=== PATIENT | female | born 1980 | race Hispanic/Latino ===

== ENCOUNTER 2016-11-10 13:09 | Emergency (ER) | payer SELFPAY ==
[2016-11-10 14:18] LABS: Basophils % (Auto) 2.7 % (0.0-1.8); Eosinophils % (Auto) 1.6 % (0.0-4.3); Hematocrit 40.4 % (30.3-42.9); Hemoglobin 13.4 gm/dl (10.1-14.3); Mean Corpuscular HGB Conc 33 % (30-34); Mean Corpuscular Hemoglobin 32 pg (28-32); Mean Corpuscular Volume 97 fl (79-97); Platelet Count 191 K/mm3 (140-440); Red Blood Count 4.17 M/mm3 (3.65-5.03); Red Cell Distribution Width 14.2 % (13.2-15.2); White Blood Count 12.4 K/mm3 (4.5-11.0)
[2016-11-10 14:42] LABS: Anion Gap 18 mmol/L; Blood Urea Nitrogen 10 mg/dL (7-17); Calcium 8.8 mg/dL (8.4-10.2); Carbon Dioxide 24 mmol/L (22-30); Chloride 99.8 mmol/L (98-107); Potassium 3.6 mmol/L (3.6-5.0); Sodium 138 mmol/L (137-145)
[2016-11-10 15:04] LABS: Glucose 126 mg/dL (65-100)
[2016-11-10 17:07] LABS: Bacteria,Urine 1+ /HPF (Negative); Bilirubin,Urine NEG (Negative); Blood,Urine SM (Negative); Ketones,Urine NEG (Negative); Leukocyte Esterase,Urine LG (Negative); Mucus,Urine 3+ /HPF; Nitrite,Urine POS (Negative); Urobilinogen,Urine < 2.0 mg/dL (<2.0); WBC,Urine > 182.0 /HPF (0.0-6.0)
[2016-11-10] MEDS ORDERED: NACL 0.9% 1000 ML 1,000 ML IV ONE (17:19)
[2016-11-10] MEDS ORDERED: ROCEPHIN/NS 1 GM/50 ML 1 GM/50 ML BAG IV ONE (17:19)
[2016-11-10] MEDS ORDERED: MOTRIN PO ONE (17:20)
--- NOTE | 2016-11-10 18:21 | Cat Scan Report ---
FINAL REPORT PROCEDURE: CT ABDOMEN PELVIS WO CON TECHNIQUE: Computerized axial tomography of the abdomen and pelvis was performed without intravenous contrast. This study is performed without intravascular contrast material and its sensitivity for abdominal and pelvic pathology, including neoplasms, inflammation, abscess, free fluid, thrombosis, arterial dissection and infarction, is reduced compared with a contrast enhanced study. HISTORY: L sided flank pain, uti COMPARISON: No prior studies are available for comparison. FINDINGS: Mild hypoventilatory changes are seen in the lung bases. Spleen is top normal limits in size. The liver, gallbladder, and pancreas display no abnormalities. Common bile duct is dilated to 7.6 millimeters in diameter. Shotty retroperitoneal lymph nodes are seen Adrenal glands and abdominal aorta are normal in size. Mild perinephric streaky densities are seen in the right. No nephrolithiasis or hydronephrosis is seen. There may be a 1 millimeter poorly calcified stone in the right upper ureter on image 86 of the axial series. Changes of right-sided pyelonephritis are not excluded.. Mild hyperdensity within the bilateral renal medulla could represent very minimal medullary nephrocalcinosis. Bladder is partially distended without abnormality. Follicles are suspected in the ovaries. Normal appendix is seen. No free pelvic fluid is seen. No small-bowel obstruction is seen but there may be mild internal hernia formation of the descending colon seen on images 75-90. There is mild gaseous dilation of the colon in the region of the suspected hernia and partial colonic obstruction is not excluded. IMPRESSION: There may be 1 millimeter stone in the right upper ureter but no right-sided hydronephrosis is seen. Right perinephric streaky densities are seen. Right-sided pyelonephritis is not excluded. There may be mild medullary nephrocalcinosis bilaterally. Likely internal hernia formation is seen associated with the distal descending colon, with possible mild partial obstruction at this level, given mild gaseous dilation. Common bile duct measures 7.6 millimeters in diameter. Correlation with bilirubin levels is recommended. Right upper quadrant ultrasound may be useful if further evaluation is clinically indicated.
--- NOTE | 2016-11-10 19:08 | Emergency Department Report ---
Entered by LORRIE ROBINS, acting as scribe for BETTINA HUNG NP. ED Female HPI - General Chief complaint: Urogenital-Female Stated complaint: UTI/FEVER Time Seen by Provider: 11/10/16 17:08 Source: patient Mode of arrival: Ambulatory Limitations: No Limitations - History of Present Illness Initial comments: Pt is a 36 y.o. female with a hx of UTIs (gets one every 4-5 years) and urosepsis who presents to [facility] today for evaluation of a five day hx of persistent fever (T max of 103 F) and shaking chills with associated five day hx of persistent dysuria and left lower back pain that wraps around her left flank. She reports that she has been alternating Tylenol and ibuprofen to alleviate her fever and low back pain, rating her constant pain as a 2/10 at present. She does not report N/V or cough. She denies allergy to abx MD Complaint: dysuria, other (Fever, shaking chills, and left lower back pain) Onset/Timin -: Gradual, days(s) Location: other (Left lower back) Radiation: L flank Severity scale (0 -10): 2 Consistency: constant Improves with: medication (Tyelnol and ibuprofen) Are you Now?: No Associated Symptoms: fever/chills, dysuria. denies: vaginal bleeding, nausea/ vomiting, shortness of breath - Related Data Sexually active: Yes Allergies Allergy/AdvReac Type Severity Reaction Status Date / Time latex Allergy Unknown Verified 11/10/16 13:39 ED Review of Systems Comment: All other systems reviewed and negative Constitutional: see HPI, chills, fever Respiratory: no symptoms reported. denies: cough Endocrine: no symptoms reported Gastrointestinal: denies: nausea, vomiting Genitourinary: dysuria Musculoskeletal: back pain (left lower back pain) ED Past Medical Hx - Past Medical History Previous Medical History?: Yes Additional medical history: vaginal delivery x 3, sepsis 10 years ago after not being compliant with antibiotic treatment of UTI - Surgical History Past Surgical History?: No - Social History Smoking Status: Current Every Day Smoker Substance Use Type: Alcohol ED Physical Exam - General Limitations: No Limitations General appearance: alert, in no apparent distress - Head Head exam: Present: atraumatic, normocephalic, normal inspection - Eye Eye exam: Present: normal appearance, PERRL, EOMI. Absent: conjunctival injection - ENT ENT exam: Present: normal exam, mucous membranes moist, normal external ear exam - Neck Neck exam: Present: normal inspection, full ROM - Respiratory Respiratory exam: Present: normal lung sounds bilaterally. Absent: respiratory distress, chest wall tenderness - Cardiovascular Cardiovascular Exam: Present: normal rhythm, tachycardia. Absent: systolic murmur, diastolic murmur, rubs, gallop - GI/Abdominal GI/Abdominal exam: Present: soft, normal bowel sounds - Expanded GI/Abdominal Exam Expanded GI/Abdominal exam: Present: other (L sided CVA tenderness ). Absent: Martinez's sign, tenderness at Mcburney's Point - Rectal Rectal exam: Present: deferred - Extremities Exam Extremities exam: Present: normal inspection, full ROM - Back Exam Back exam: Present: normal inspection, full ROM, tenderness, CVA tenderness (L) . Absent: muscle spasm, paraspinal tenderness, vertebral tenderness - Neurological Exam Neurological exam: Present: alert, oriented X3 - Psychiatric Psychiatric exam: Present: normal affect, normal mood - Skin Skin exam: Present: warm, dry, intact, normal color. Absent: rash ED Course Vital Signs 11/10/16 11/10/16 11/10/16 13:39 17:21 17:39 Temperature 99.8 F H 100.1 F H Pulse Rate 90 Respiratory 18 12 Rate Blood Pressure 146/99 O2 Sat by Pulse 98 Oximetry - Reevaluation(s) Reevaluation #1: 11/10/16 19:00 PT aware of her abnormal CT findings. PT offered admission. PT declined. PT is A and O x 4. PT is of sound mind. PT aware of dx and risk of leaving AMA. PT states she needs to drive home to [place] and then she can to the hospital when she closer to her children. - Pulse Oximetry Interpretation Digit-Finger Initial Pulse Oximetry Readin Actions Taken: none ED Medical Decision Making - Lab Data Result diagrams: 11/10/16 14:03 11/10/16 14:03 Lab Results 11/10/16 11/10/16 11/10/16 Range/Units 14:03 14:03 16:44 WBC 12.4 H (4.5-11.0) K/mm3 RBC 4.17 (3.65-5.03) M/mm3 Hgb 13.4 (10.1-14.3) gm/dl Hct 40.4 (30.3-42.9) % MCV 97 (79-97) fl MCH 32 (28-32) pg MCHC 33 (30-34) % RDW 14.2 (13.2-15.2) % Plt Count 191 (140-440) K/mm3 Lymph % (Auto) 9.3 L (13.4-35.0) % Branch % (Auto) 7.9 H (0.0-7.3) % Eos % (Auto) 1.6 (0.0-4.3) % Baso % (Auto) 2.7 H (0.0-1.8) % Lymph # 1.2 (1.2-5.4) K/mm3 Branch # 1.0 H (0.0-0.8) K/mm3 Eos # 0.2 (0.0-0.4) K/mm3 Baso # 0.3 H (0.0-0.1) K/mm3 Seg Neutrophils % 78.5 H (40.0-70.0) % Seg Neutrophils # 9.7 H (1.8-7.7) K/mm3 Sodium 138 (137-145) mmol/L Potassium 3.6 (3.6-5.0) mmol/L Chloride 99.8 (98-107) mmol/L Carbon Dioxide 24 (22-30) mmol/L Anion Gap 18 mmol/L BUN 10 (7-17) mg/dL Creatinine 0.5 L (0.7-1.2) mg/dL Estimated GFR > 60 ml/min BUN/Creatinine Ratio 20.00 % Glucose 126 H (65-100) mg/dL Calcium 8.8 (8.4-10.2) mg/dL Urine Color Yellow (Yellow) Urine Turbidity Cloudy (Clear) Urine pH 5.0 (5.0-7.0) Ur Specific [place] 1.018 (1.003-1.030) Urine Protein 30 mg/dl (Negative) mg/dL Urine Glucose (UA) Neg (Negative) mg/dL Urine Ketones Neg (Negative) mg/dL Urine Blood Sm (Negative) Urine Nitrite Pos (Negative) Urine Bilirubin Neg (Negative) Urine Urobilinogen < 2.0 (<2.0) mg/dL Ur Leukocyte Esterase Lg (Negative) Urine WBC (Auto) > 182.0 H (0.0-6.0) /HPF Urine RBC (Auto) 4.0 (0.0-6.0) /HPF U Epithel Cells (Auto) 1.0 (0-13.0) /HPF Urine Bacteria (Auto) 1+ (Negative) /HPF Urine Mucus 3+ /HPF Urine HCG, Qual Negative (Negative) - Radiology Data Radiology results: report reviewed CT abd/ pelvis - R sided pyelonephritis, common bile duct dilated, internal hernia formation in the distal descending colon with possible mild partial obstruction - Differential Diagnosis uti, pyelonephrititis, billiary colic Critical Care Time: No ED Disposition Clinical Impression: Pyelonephritis, Common bile duct dilatation, Hernia, internal Disposition: LEFT AGAINST MED ADVICE Is pt being admited?: No Does the pt Need Aspirin: No Condition: Undetermined Instructions: Acute Pyelonephritis (ED), Urinary Tract Infection in Women (ED) , Biliary Colic (ED) Additional Instructions: Your CT of your abdomen and pelvis was abnormal. I offered you admission for this and you declined. Please follow up with your PCP/ local ED when you return home. If you feel worse, please go to the nearest Emergency room. Referrals: PRIMARY CARE,MD [Primary Care Provider] - 3-5 Days Forms: AMA Form Time of Disposition: 19:07 This documentation as recorded by the SHIMON orellana KELLY,accurately reflects the service I personally performed and the decisions made by me,BETTINA HUNG NP.
[2016-11-10 19:25] VITALS: BP 124/76
[2016-11-10 21:13] LABS: Albumin 3.9 g/dL (3.9-5); Albumin/Globulin Ratio 1.2 %; Bilirubin,Direct 0.2 mg/dL (0-0.2); Bilirubin,Indirect 0.8 mg/dL; Total Protein 7.2 g/dL (6.3-8.2)
== END 2016-11-10 19:27 | disposition left against medical advice (07) ==
LOC: ED 13:09
DX: N12 Tubulo-interstitial nephritis, not specified as acute or chronic (principal); K82.8 Other specified diseases of gallbladder; K45.8 Other specified abdominal hernia without obstruction or gangrene; F17.210 Nicotine dependence, cigarettes, uncomplicated; Z91.040 Latex allergy status
CPT/HCPCS: 36415; 74176; 80048; 80074; 81001; 81025; 85025; 87076; 87086; 87186; 96365; 99284; J0696; J7030